=== PATIENT | male | born 1975 | race Caucasian/White ===

== ENCOUNTER 2025-01-14 18:17 | Emergency (ER) | payer BC, OTHER ==
[~2025-01-14] VITALS: Ht 185.4 cm; Wt 102.1 kg
[2025-01-14] MEDS ORDERED: KETOROLAC TROMETHAMINE 15 MG/ML VIAL ONE (18:52)
[2025-01-14] MEDS ORDERED: METOCLOPRAMIDE HCL 10 MG/2 ML VIAL ONE (18:52)
[2025-01-14] MEDS ORDERED: ACETAMINOPHEN ES 500 MG TABLET ONE (18:52)
[2025-01-14] MEDS: IV NS 0.9% 500 ML BAG IV ONE (19:09)
[2025-01-14] MEDS: KETOROLAC TROMETHAMINE 15 MG/ML VIAL IV ONE (19:10)
[2025-01-14] MEDS: ACETAMINOPHEN ES 500 MG TABLET PO ONE (19:10)
[2025-01-14] MEDS: METOCLOPRAMIDE HCL 10 MG/2 ML VIAL IV ONE (19:31)
[2025-01-14 22:30] VITALS: BP 136/94; TEMP 98.1; O2SAT 97
== END 2025-01-14 22:30 | disposition left against medical advice (07) ==
LOC: ER 18:28
DX: G43.909 Migraine, unspecified, not intractable, without status migrainosus (principal)
CPT/HCPCS: 99284; 96374; 96375; J1885; J1200; J2765; J7040